=== PATIENT | male | born 1955 | race Caucasian/White ===

== ENCOUNTER → 2017-03-24 | Outpatient (CLI) | payer BC ==
--- NOTE | 2017-03-24 10:30 | RAD ---
INDICATION: WELLNESS CHECK COMPARISON: March 23, 2016 FINDINGS: 2 views of chest obtained. No focal airspace consolidation. Mediastinal contour is unremarkable. No gross osseous destructive lesion. Degenerative changes of spine. IMPRESSION: No focal airspace consolidation or edema.
== END | disposition home or self-care (01) ==
LOC: PMG 09:48
PROVIDERS: ATTEND Family Medicine
DX: Z00.00 Encounter for general adult medical examination without abnormal findings (principal)
CPT/HCPCS: 71046

== ENCOUNTER → 2019-05-30 | Outpatient (CLI) | payer BC ==
--- NOTE | 2019-05-30 09:04 | RAD ---
Examination: ABDOMEN SUPINE UPRIGHT History: Abdominal pain Comparison/Correlation: 03/23/2016 abdomen obstruction series Findings: The lung bases are clear. Surgical clips are noted within the abdomen. No extraluminal gas. Punctate density at the left renal interpolar region which may represent a 0.2 cm diameter calculus is present. No radiopaque calculi overlying the right renal shadow aren't delineated. Pelvic calcifications are present probably representing phleboliths. Impression: Left renal calculus suspected. Consider further evaluation if obstructive calculus is a concern. Electronically signed by: Baltazar Correa MD (05/30/2019 9:01 AM) [id number]
== END ==
LOC: PMG 08:08
PROVIDERS: ATTEND Physician Assistant
DX: R10.9 Unspecified abdominal pain (principal)
CPT/HCPCS: 74019